=== PATIENT | male | born 1960 | race African-American/Black ===

== ENCOUNTER → 2016-06-17 | Outpatient (CLI) | payer OTHER, BC ==
[~2016-06-17] MED LIST: MULT-506 PO; RXC5 PO
--- NOTE | 2016-06-17 15:47 | DIAGNOSTIC IMAGING REPORT ---
MRI OF THE CERVICAL SPINE WITHOUT IV CONTRAST CLINICAL HISTORY: Neck pain. Left upper extremity radiculopathy. COMPARISON STUDY: No priors. TECHNIQUE: MRI of the cervical spine is performed utilizing various T1 and T2-weighted sequences in the axial and sagittal planes. IV contrast was not administered for this examination. FINDINGS: Cervical spine: Vertebral body height and alignment are maintained throughout the cervical spine. There is mild straightening of the cervical lordosis. The atlantodental articulation appears preserved. The spinous processes are intact. Small anterior osteophytes are seen at C5 to C7. Mild degenerative endplate edema is noted at C5-C6. No destructive osseous process is identified. Intervertebral discs: There is degenerative disc desiccation seen throughout the cervical spine. Mild loss of height is noted at C5-C6 and C6-C7. Spinal cord: Minimal focal myelomalacia is suggested within the cervical cord at the level of C6, likely related to spinal stenosis. There is minimal thinning of the cord at this level. This is best seen on axial image #113 and sagittal STIR image #10. The cervical spinal cord is otherwise normal in morphology and signal intensity. C2-C3: Unremarkable. C3-C4: Uncovertebral and facet arthropathy cause mild left neural foraminal stenosis. The central canal appears clear. C4-C5: A posterior disc osteophyte complex eccentric to the right effaces the ventral subarachnoid space. Facet arthropathy causes only minimal right-sided neural foraminal stenosis. C5-C6: A posterior disc osteophyte complex eccentric to the right effaces the ventral cord. In conjunction with facet arthropathy, this causes severe right and [id number] left neural foraminal stenosis. C6-C7: A posterior disc osteophyte complex eccentric to the right effaces the ventral cord. In conjunction with uncovertebral and facet arthropathy, this causes moderate right and mild left neural foraminal stenosis. C7-T1: Unremarkable. Soft tissues: The prevertebral and paraspinous soft tissues are within normal limits. Brain parenchyma: Partially visualized brain parenchyma at the skull base is normal in appearance. IMPRESSION: 1. Cervical spondylosis as above, greatest at C5-C6 and C6-C7 where there is effacement of the ventral cord secondary to posterior disc osteophyte complexes. 2. See discussion for detailed [id number] analysis. 3. Suspect mild myelomalacia at the level of C6, likely secondary to spinal stenosis. Dictated: 06/17/2016 3:19 PM Transcribed: 06/17/2016 3:46 PM [email or web address]_Nisa Electronically signed by: Danielito Parada M.D. 06/17/2016 3:49 PM Dictated Date/Time: 06/17/2016 3:19 PM
== END | disposition home or self-care (01) ==
LOC: C.MRIBC 14:31
PROVIDERS: ATTEND Pain Medicine Interventional Pain Medicine
DX: M47.22 Other spondylosis with radiculopathy, cervical region (principal)

== ENCOUNTER → 2016-06-28 | Outpatient (CLI) | payer OTHER, BC ==
--- NOTE | 2016-06-28 10:52 | DIAGNOSTIC IMAGING REPORT ---
CERVICAL SPINE 5 VIEWS HISTORY: Neck pain. COMPARISON: Cervical spine MRI 06/17/2016. FINDINGS: The cervical spine is visualized from C1 through the superior endplate of T1. There is no fracture. No subluxation. Straightening of the cervical spine. Moderate disc space narrowing at C5-C6 and C6-C7 with associated endplate osteophytes. Prevertebral soft tissues and the atlantodens interval are intact. Moderate bilateral neural foraminal narrowing at C5-C6 and C6-C7 due to the uncovertebral hypertrophy. IMPRESSION: No fracture or subluxation within the cervical spine. No change in the C5-C6 and C6-C7 moderate degenerative disc disease. Electronically signed by: Zion Altamirano M.D. 06/28/2016 10:51 AM Dictated Date/Time: 06/28/2016 10:41 AM
== END | disposition home or self-care (01) ==
LOC: C.RAD 10:02
PROVIDERS: ATTEND Pain Medicine Interventional Pain Medicine
DX: M54.2 Cervicalgia (principal); M50.322 Other cervical disc degeneration at C5-C6 level; M50.323 Other cervical disc degeneration at C6-C7 level

== ENCOUNTER 2016-08-11 05:15 | Inpatient (IN) | payer OTHER, BC ==
[2016-07-27 13:42] VITALS: BMI 32.0
--- NOTE | 2016-07-27 14:12 | PAT Medication Instructions ---
Service Date Jul 27, 2016. Current Home Medication List Multivitamin (Multivitamin), 1 TAB PO QAM Medication Instructions For Your Scheduled Surgery - Hold the following medications the morning of surgery: Multivitamin (Multivitamin), 1 TAB PO QAM If you have any questions please call us at [phone] or [phone] or [phone]
--- NOTE | 2016-07-27 14:45 | DIAGNOSTIC IMAGING REPORT ---
CHEST PREADMISSION(PA/LAT) CLINICAL HISTORY: PAT preoperative evaluation COMPARISON STUDY: No previous studies for comparison. FINDINGS: The bones soft tissues and hemidiaphragms are normal. The cardiomediastinal silhouette is normal. The lungs are clear. The pulmonary vasculature is normal. IMPRESSION: Negative chest. Electronically signed by: Eric Sutton M.D. 07/27/2016 2:44 PM Dictated Date/Time: 07/27/2016 2:44 PM
[2016-07-27 14:53] LABS: BASO % 0.2 %; BASO ABS # 0.01 K/uL (0-0.2); HEMATOCRIT 44.3 % (42-52); IG% 0.4 %; LYMPH % 17.4 %; LYMPH ABS # 0.98 K/uL (1.2-3.4); MEAN CELL VOLUME 71.2 fL (80-100); MEAN CORPUSCULAR HEMOGLOBIN 23.8 pg (25-34); MEAN CORPUSCULAR HGB CONC 33.4 g/dl (32-36); MONO % 9.1 %; NEUT % 70.9 %; PLATELET COUNT 208 K/uL (130-400); RED BLOOD COUNT 6.22 M/uL (4.7-6.1); WHITE BLOOD COUNT 5.63 K/uL (4.8-10.8)
[2016-07-27 15:08] LABS: URINE APPEARANCE CLEAR (CLEAR); URINE BILIRUBIN NEG (NEG); URINE COLOR YELLOW; URINE NITRITE NEG (NEG); URINE PH 5.5 (4.5-7.5); URINE SPECIFIC GRAVITY 1.018 (1.000-1.030); UROBILINOGEN NEG (NEG)
[2016-07-27 15:12] LABS: MANUAL MICROSCOPIC REQUIRED? NO; REVIEW REQ? NO
[2016-07-27 15:39] LABS: BUN/CREATININE RATIO 15.8 (10-20); CALCIUM 8.8 mg/dl (8.5-10.1); CREATININE 1.1 mg/dl (0.60-1.40); POTASSIUM 4.2 mmol/L (3.5-5.1)
[2016-07-27 15:41] LABS: COMPLETE YES; MICROCYTOSIS PRESENT
--- NOTE | 2016-08-09 12:50 | HISTORY & PHYSICAL EXAMINATION ---
DATE OF ADMISSION: 08/11/2016 CHIEF COMPLAINT: Neck and left arm pain. HISTORY OF PRESENT ILLNESS: The patient is a 55-year-old male who reports longstanding history symptoms as above. He reports associated numbness in the left arm and of course the pain. Pain on a daily basis 5/10, increased with activity. He had a work related injury last fall 2015 when he attempted to pull open a heavy door and felt onset of neck and shoulder pain. He was identified as having a rotator cuff tear, was treated surgically for this this and following completion of rehabilitation for this shoulder, had ongoing symptoms consistent with a radiculopathy. Workup revealed disc herniation C5-C6, C6-C7 with cord compression and slight myelomalacia and foraminal narrowing. Despite conservative treatment, he had ongoing pain and has been unable to return to work. Did trial an epidural injection and therapy with no resolution. He denies right arm symptoms. He reports subjective numbness in the radial 2 digits of the left upper extremity. He was previously working as a senior escrow officer. PAST MEDICAL HISTORY: Denied. PAST SURGICAL HISTORY: Left shoulder, rotator cuff repair, right knee surgery, right shoulder surgery, right finger surgery. ALLERGIES: None. CURRENT MEDICATIONS: None. SOCIAL HISTORY: The patient is , has children. Occasionally uses alcohol. No tobacco use or drug use. FAMILY HISTORY: Notable for hypertension. REVIEW OF SYSTEMS: Notable for subjective weakness left upper extremity. Denies cardiac symptoms such as irregular heartbeat, syncope or chest pain. He denies dyspnea on exertion, cough, abdominal pain, incontinence, anxiety, depression, fevers, chills, night sweats or other constitutional complaints. PHYSICAL EXAMINATION: The patient stands 6'1" tall, weighs 245 pounds. He has normal affect and answers questions appropriately. Appears stated age. He has full cervical range of motion but a positive Spurling's to the left. He has a negative Lhermitte's. He has no lymphadenopathy or thyromegaly in the neck. CARDIAC EXAMINATION: Reveals regular rate and rhythm. LUNGS: Clear to auscultation bilaterally. He has equal symmetric chest excursion. EXTREMITY EXAMINATION: Reveals full active range of motion of both upper extremities with palpable radial pulses and normal appearing skin. NEUROLOGIC EXAMINATION: Reveals sensory disturbance to light touch radial digits of the left hand. He has 5/5 strength mini motor testing of both upper extremities in all motor groups. Sensory testing of the right upper extremity is normal. Left demonstrated the sensory disturbance. Reflexes are symmetrically diminished in the upper extremities at biceps, triceps, brachioradialis. He has a negative Goodman's bilaterally. He has no ataxia with gait. MRI was reviewed as above. ASSESSMENT AND PLAN: The patient has a known C5-C6, C6-C7 disc herniation with radiculopathy, failed to respond to conservative treatment. PLAN: Given the chronicity and ongoing sensory disturbances I recommend surgery. Plan is for ACDF C5-C6 and C6-C7. His questions are answered. Risk were reviewed. [facility]
[~2016-08-11] VITALS: Ht 185.4 cm; Wt 113.3 kg
[2016-08-11] VITALS (14 sets, daily range): BP systolic 120–145; BP diastolic 76–90; PULSE 60–86; TEMP 36.4–37; O2SAT 96–100; Ht 185.4 cm; Wt 113.3 kg
[~2016-08-11 05:15] MED LIST changes: -RXC5 PO
[2016-08-11] MEDS ORDERED: LACTATED RINGER'S 1000ML 1,000 ML IV SCH (06:00)
[2016-08-11] MEDS ORDERED: CeleBREX 200 MG CAP PO SCH (06:00)
[2016-08-11] MEDS ORDERED: CEFAZOLIN 2000 MG/60 ML D5W IV SCH (06:00)
[2016-08-11] MEDS ORDERED: PREGABALIN 75 MG CAP PO SCH (06:00)
[2016-08-11] MEDS ORDERED: FENTANYL CITRATE INJ 50 MCG/1 ML 2 ML VIAL ONE ×3 (06:37→08:40)
[2016-08-11] MEDS ORDERED: MIDAZOLAM HCL 1 MG/ML 2ML VIAL ONE (06:37)
[2016-08-11] MEDS ORDERED: PROPOFOL IV EMULSION 10 MG/ML 100 ML VIAL IV ONE (06:47)
[2016-08-11] MEDS ORDERED: REMIFENTANIL 1 MG VIAL ONE ×3 (06:51→09:29)
[2016-08-11] MEDS ORDERED: THROMBIN 5000 UNITS KIT ONE (07:02)
[2016-08-11] MEDS ORDERED: BACITRACIN 50000 UNIT VIAL ONE (07:02)
--- NOTE | 2016-08-11 07:35 | History & Physical Bridge Note ---
H&P Re-Evaluation Bridge Note: I have examined the patient, reviewed the History & Physical and in the interval since the performance of the History & Physical I have noted the following changes of clinical significance: No changes noted
[2016-08-11] MEDS ORDERED: PROMETHAZINE HCL INJ 12.5 MG in SODIUM CHLORIDE 0.9% 50ML 50 ML IV PRN (08:00)
[2016-08-11] MEDS ORDERED: FENTANYL CITRATE INJ 50 MCG/1 ML 2 ML VIAL IV PRN (08:00)
[2016-08-11] MEDS ORDERED: EpHEDrine SULFATE INJ 50 MG/ML AMP IV PRN (08:00)
[2016-08-11] MEDS ORDERED: ONDANSETRON INJ 2 MG/ML 2 ML VIAL IV PRN ×2 (08:00→10:15)
[2016-08-11] MEDS ORDERED: HYDROmorphone INJ 1 MG/ML SYR IV PRN (08:00)
[2016-08-11] MEDS ORDERED: ATROPINE SULFATE 0.1 MG/ML 5ML SYR IV PRN (08:00)
[2016-08-11] MEDS ORDERED: HYDROmorphone INJ 2 MG/ML SYR/VIAL ONE ×2 (08:15→09:43)
[2016-08-11] MEDS ORDERED: EpHEDrine SULFATE 50MG/5ML SYR ONE (09:38)
[2016-08-11] MEDS ORDERED: DEXAMETHASONE SOD INJ 4 MG/ML VIAL ONE (09:38)
[2016-08-11] MEDS ORDERED: LIDOCAINE HCL 2% 2 ML VIAL (20MG/ML) ONE (09:38)
[2016-08-11] MEDS ORDERED: ONDANSETRON INJ 2 MG/ML 2 ML VIAL ONE (09:38)
[2016-08-11] MEDS ORDERED: PROPOFOL IV EMULSION 10 MG/ML 20 ML VIAL IV ONE (09:38)
[2016-08-11] MEDS ORDERED: SUCCINYLCHOLINE CHLORIDE 20 MG/ML 10 ML VIAL IV ONE (09:38)
[2016-08-11] MEDS ORDERED: FLOSEAL HEMOSTATIC MATRIX 5ML TOP ONE (09:54)
--- NOTE | 2016-08-11 10:08 | [facility] Post Operative Brief Note ---
Immediate Operative Summary Operative Date Aug 11, 2016. Pre-Operative Diagnosis C5-C6, C6-C7 disc herniation with radiculopathy Post-Operative Diagnosis SAME Procedure(s) Performed C5-C7 Anterior Cervical Discectomy and Fusion; C6 Corpectomy; C6 placement of interbody device with application of allograft Surgeon Dr. Castrejon Telephonic Rn Surgeon(s) Huey Ott PA-C Estimated Blood Loss 25 ML Findings \dcit Specimens none per surgeon
[2016-08-11] MEDS ORDERED: RACEPINEPHRINE 2.25% NEBU SOLN 0.5 ML VIAL INH PRN (10:15)
[2016-08-11] MEDS ORDERED: LORAZEPAM 0.5 MG TAB PO PRN (10:15)
[2016-08-11] MEDS ORDERED: DEXAMETHASONE INJ 8 MG in SYRINGE 0 ML IV PRN (10:15)
[2016-08-11] MEDS ORDERED: NALOXONE HCL 0.4 MG/1 ML VIAL/CARP IV PRN (10:15)
[2016-08-11] MEDS ORDERED: DiphenhydrAMINE HCL 50 MG/ML VIAL IV PRN (10:15)
[2016-08-11] MEDS ORDERED: LORAZEPAM INJ 0.5 MG in SYRINGE 0.75 ML IV PRN (10:15)
[2016-08-11] MEDS ORDERED: OXYCODONE HCL IR 5 MG TAB (IMMEDIATE RELEASE) PO PRN (10:15)
[2016-08-11] MEDS ORDERED: HYDROmorphone INJ 0.5 MG/0.5 ML SYR IV PRN (10:15)
[2016-08-11] MEDS ORDERED: LABETALOL HCL IV 5 MG/ML 20ML IV ONE (10:33)
[2016-08-11] MEDS ORDERED: NURSING VERBAL MED ORDER ONE (10:45)
--- NOTE | 2016-08-11 11:32 | Anesthesiology Progress Note ---
Anesthesia Post Op Note Date & Time Aug 11, 2016 at 11:32 Vital Signs Pain Intensity: 0 Vital Signs Past 12 Hours Date Time Temp Pulse Resp B/P (MAP) Pulse Ox O2 Delivery O2 Flow Rate FiO2 08/11/16 11:25 85 18 133/85 99 Room Air 08/11/16 11:15 36.1 81 18 142/87 99 Room Air 08/11/16 11:05 83 18 140/99 100 Oxymask 3 08/11/16 10:55 82 18 149/92 100 Oxymask 3 08/11/16 10:45 85 14 165/98 100 Oxymask 3 08/11/16 10:35 85 16 161/106 100 Oxymask 10 08/11/16 10:25 95 16 166/107 100 Oxymask 10 08/11/16 10:16 36.1 95 26 161/87 93 Oxymask 10 08/11/16 05:40 37 69 18 145/90 98 Room Air Notes Mental Status: alert / awake / arousable, participated in evaluation Pt Amnestic to Procedure: Yes Nausea / Vomiting: adequately controlled Pain: adequately controlled Airway Patency, RR, SpO2: stable & adequate BP & HR: stable & adequate Hydration State: stable & adequate Anesthetic Complications: no major complications apparent
[2016-08-11] MEDS ORDERED: ACETAMINOPHEN IV 100 ML IV PRN (12:45)
--- NOTE | 2016-08-11 12:53 | DIAGNOSTIC IMAGING REPORT ---
Cervical SPINE, INTRAOPERATIVE FLUOROSCOPY HISTORY: C5 C7 ACDF. FLUOROSCOPY TIME: 15 seconds. FINDINGS: Intraoperative fluoroscopy was provided for the cervical spine. 3 fluoroscopic spot images were obtained. Anterior cervical discectomy and fusion from C5 through C7. The hardware appears intact. IMPRESSION: Fluoroscopy provided for a C5-C7 ACDF. Electronically signed by: Zion Altamirano M.D. 08/11/2016 12:52 PM Dictated Date/Time: 08/11/2016 12:49 PM
[2016-08-11] MEDS ORDERED: SCOPOLAMINE 1.5 MG TDSY TD SCH (13:00)
[2016-08-11] MEDS: SODIUM CHLORIDE 0.9% 1000ML 1,000 ML IV SCH ×2 (13:06→21:40)
[2016-08-11] MEDS: DEXAMETHASONE INJ 6 MG in SYRINGE 0 ML IV SCH (16:13)
[2016-08-11] MEDS: CEFAZOLIN IV 1,000 MG in DEXTROSE 5% 50ML 50 ML IV SCH (16:13)
[2016-08-11] MEDS: CHECK SCOPOLAMINE PATCH PLACEMENT SCH (16:14)
[2016-08-12] VITALS (12 sets, daily range): BP systolic 126–149; BP diastolic 78–87; PULSE 65–91; TEMP 36.5–36.9; O2SAT 94–99
[2016-08-12] MEDS: CHECK SCOPOLAMINE PATCH PLACEMENT SCH ×2 (00:13→08:16)
[2016-08-12] MEDS: CEFAZOLIN IV 1,000 MG in DEXTROSE 5% 50ML 50 ML IV SCH ×2 (00:13→08:21)
[2016-08-12] MEDS: DEXAMETHASONE INJ 6 MG in SYRINGE 0 ML IV SCH ×2 (00:13→08:16)
[2016-08-12] MEDS ORDERED: NURSING VERBAL MED ORDER ONE (06:30)
--- NOTE | 2016-08-12 08:38 | Anesthesiology Progress Note ---
Anesthesia Post Op Note Date & Time Aug 12, 2016 at 08:37 Vital Signs Pain Intensity: 0.0 Vital Signs Past 12 Hours Date Time Temp Pulse Resp B/P (MAP) Pulse Ox O2 Delivery O2 Flow Rate FiO2 08/12/16 07:09 70 14 94 Room Air 08/12/16 06:50 Room Air 08/12/16 06:29 36.5 70 18 129/78 97 Room Air 08/12/16 04:35 36.5 74 16 130/83 98 Nasal Cannula 2.0 08/12/16 03:21 69 12 99 Nasal Cannula 2.0 08/12/16 02:37 36.6 70 16 126/83 99 Nasal Cannula 2.0 08/12/16 00:20 36.5 76 16 139/79 98 Nasal Cannula 2.0 08/12/16 00:20 98 Nasal Cannula 2.0 Humidified Oxygen 08/11/16 23:27 81 12 98 Nasal Cannula 2.0 08/11/16 22:18 36.8 74 20 132/82 99 Nasal Cannula 2.0 Humidified Oxygen 08/11/16 20:43 36.6 60 18 128/83 96 Nasal Cannula 2.0 Humidified Oxygen Notes Mental Status: alert / awake / arousable, participated in evaluation Pt Amnestic to Procedure: Yes Nausea / Vomiting: adequately controlled Pain: adequately controlled Airway Patency, RR, SpO2: stable & adequate BP & HR: stable & adequate Hydration State: stable & adequate Anesthetic Complications: no major complications apparent
[2016-08-12] MEDS ORDERED: RXC5 PO (14:21)
--- NOTE | 2016-08-12 14:22 | Discharge Instructions ---
Discharge Instructions Date of Service Aug 12, 2016. Admission Reason for Admission: Spinal Stenosis Discharge Discharge Diagnosis / Problem: same Discharge Goals Goal(s): Decrease discomfort Activity Recommendations Activity Limitations: per Instructions/Follow-up section Lifting Limitations: no more than 10 pounds Exercise/Sports Limitations: until after follow-up appointment May Resume Sexual Activity: when tolerated Shower/Bathe: may shower/bathe in 3 days . Instructions / Follow-Up Instructions / Follow-Up ACTIVITY RECOMMENDATIONS: SELF CARE INSTRUCTIONS AFTER CERVICAL FUSIONS 1. No smoking. Smoking drastically decreases the chance of a solid fusion. 2. No bending, lifting more than 5 pounds, or twisting (roll like a log when turning in bed). 3. You may shower 3 days after surgery. Thoroughly dry wound. Do not soak in the tub. 4. Cervical collar: Must be worn at all times including sleeping. You may remove the brace only to bath, eat and if you are sitting in a recliner. 5. Please walk as much as you can for exercise. Gradually increase the distance that you walk as your endurance increases. SPECIAL CARE INSTRUCTIONS: VERY IMPORTANT TO READ AND REVIEW A. Do not take any anti-inflammatory medications (i.e. Indocin, Advil, Aspirin, Naprosyn, Aleve, Motrin, etc.) as these may inhibit the chance of a solid fusion. Tylenol is okay to take. B. Your surgical incision has been closed with a cosmetic suture under the skin that will dissolve in about 6 weeks. In 14 days, you can use a pair of clean scissors and cut the suture that is left outside of the skin at the ends of your incision. C. Complications are uncommon, but please contact us if you have any signs or symptoms of: 1. wound infection (fever higher than 102.5 degrees F, redness, separation of wound, drainage, or increasing pain from the incision) 2. blood clots in legs (pain, swelling, redness and warmth in legs) 3. urinary tract infection (fever higher than 102.5 degrees, burning upon urination or increased frequency of urination) 4. nerve problems (inability to walk on your toes or heels, numbness, loss of bowel or bladder control) 5. any other symptoms that concern you. D. Please call the office at if you have any concerns or questions about your operation or recovery. MANAGING PAIN AFTER SPINAL SURGERY 1. Narcotic medication is intended for short-term use and will be provided for surgical pain. Surgical pain usually lasts for a period of 4-6 weeks. Narcotic medication includes Percocet, Vicodin, Darvocet, Tylenol #3 or Lortab. 2. Longer-term pain is more appropriately treated with non-narcotic medication such as Tylenol ES. 3. Muscle spasm is not appropriately treated with narcotics. Muscle relaxers such as Soma, Flexeril or Skelaxin can be used along with Tylenol ES. 4. Remember that we all live with some "aches and pains". This is not unusual or uncommon after an injury or as we get older. 5. We will provide appropriate medication within the normal guidelines of their prescribed use. We will also be very cautious and aware of potential abuse and extended duration of patients' medication needs. 6. Please allow 2-3 days to process refills. Prescriptions will not be mailed but must be picked up at the office. FOLLOW UP VISIT: Keep your scheduled follow-up appointment. Any questions, please call the office at . Current Hospital Diet Patient's current hospital diet: Clear Liquid Diet Discharge Diet Recommended Diet: Regular Diet Procedures Procedures Performed: C5-C7 Anterior Cervical Discectomy and Fusion; C6 Corpectomy; C6 placement of interbody device with application of allograft Pending Studies Studies pending at discharge: no Medical Emergencies . Who to Call and When: Medical Emergencies: If at any time you feel your situation is an emergency, please call 911 immediately. . Non-Emergent Contact Non-Emergency issues call your: Surgeon . "Provider Documentation" section prepared by Eduar Castrejon. . VTE Core Measure Inpt VTE Proph given/why not?: [facility] [place] Drug Monitoring Program Search Results: patient reviewed within database, no issues identified
--- NOTE | 2016-08-12 14:24 | Discharge Summary ---
Orthopedic Discharge Summary Admission Date/Reason Aug 11, 2016 at 10:10 Spinal Stenosis. Discharge Date/Disposition Aug 12, 2016 Home Diagnosis Principal Diagnosis: same Procedure(s) Performed C6 corpectomy Medication Reconciliation New Medications: Oxycodone HCl (Oxycodone HCl) 5 Mg Tab 5-10 MG PO Q4H PRN for moderate-severe pain, #60 TAB Continued Medications: Multivitamin (Multivitamin) Tab 1 TAB PO QAM, TAB Admission Physical Exam As per Admitting History & Physical. Hospital Course The patient was admitted for elective cervical surgery. They tolerated procedure without complications, were stable on the floor, ambulated, had pain controlled and were discharged in stable condition. Discharge Instructions Please refer to the electronic Patient Visit Report (Discharge Instructions) for additional information.
--- NOTE | 2016-08-12 14:25 | Orthopedic Progress Note ---
Orthopedic Progress Note Date of Service Aug 12, 2016. Subjective Post OP Day: 1 Reports: feeling well, pain controlled w PO medications Objective calves soft nontender, N/V intact, dressing C/D/I, A&O x3, hemovac drainage Date Time Temp Pulse Resp B/P (MAP) Pulse Ox O2 Delivery O2 Flow Rate FiO2 08/12/16 12:28 36.9 67 16 131/82 95 Room Air 08/12/16 11:36 36.7 68 14 98 Room Air 08/12/16 11:08 68 14 98 Room Air 08/12/16 10:30 36.7 65 16 144/87 97 Room Air 08/12/16 08:30 36.9 77 16 127/84 95 Room Air 08/12/16 07:09 70 14 94 Room Air 08/12/16 06:50 Room Air 08/12/16 06:29 36.5 70 18 129/78 97 Room Air 08/12/16 04:35 36.5 74 16 130/83 98 Nasal Cannula 2.0 08/12/16 03:21 69 12 99 Nasal Cannula 2.0 08/12/16 02:37 36.6 70 16 126/83 99 Nasal Cannula 2.0 08/12/16 00:20 36.5 76 16 139/79 98 Nasal Cannula 2.0 08/12/16 00:20 98 Nasal Cannula 2.0 Humidified Oxygen 08/11/16 23:27 81 12 98 Nasal Cannula 2.0 08/11/16 22:18 36.8 74 20 132/82 99 Nasal Cannula 2.0 Humidified Oxygen 08/11/16 20:43 36.6 60 18 128/83 96 Nasal Cannula 2.0 Humidified Oxygen 08/11/16 19:55 80 14 97 Nasal Cannula 2.0 08/11/16 18:36 36.4 80 20 135/78 97 Nasal Cannula 2.0 Humidified Air 08/11/16 16:38 36.4 73 12 120/76 97 Nasal Cannula 2.0 Humidified Oxygen 08/11/16 16:00 Nasal Cannula 2.0 Humidified Oxygen 08/11/16 15:46 86 14 98 Nasal Cannula 2.0 08/11/16 14:30 36.7 78 138/86 97 Nasal Cannula 2.0 Humidified Oxygen Assessment & Plan Assessment: stable, amberly diet, no swelling, ok to d/c home
--- NOTE | 2016-08-12 22:49 | OPERATIVE REPORT ---
DATE OF OPERATION: 08/11/2016 PREOPERATIVE DIAGNOSES: Cervical disc herniations and cervical stenosis C5-C6 and C6-C7. POSTOPERATIVE DIAGNOSES: Same. PROCEDURES: 1. C6 corpectomy. 2. Anterior cervical fusion C5-C7 with anterior cervical corpectomy, spacer, local bone and bone putty. 3. Anterior cervical instrumentation with [employer] anterior cervical titanium plate C5-C7. SURGEON: Dr. Castrejon. SOLID WASTE MANAGER: Jeff Ott PA-C. Please note he participated in all portions of the procedure and was critical for performance of the procedure, participated in positioning, prepping, draping, retraction, and wound closure. ANESTHESIA: General endotracheal anesthesia. COMPLICATIONS: None. ESTIMATED BLOOD LOSS: Minimal. PROCEDURE IN DETAIL: After identification of the patient and operative level, he was brought to the OR where he underwent induction of general anesthesia. He was then positioned supine on OR table. All bony prominences well padded. Care was taken to pad all bony prominences. Shoulders were taped distally. The anterior neck was sterilely prepped and draped in usual fashion. Spinal cord monitoring signals were obtained and timeout was performed. I made a transverse skin incision on the right side of the neck at the level of the cricoid cartilage. I divided the platysma in line with the incision and performed routine anterior cervical exposure, medial to sternocleidomastoid and carotid sheath. I used blunt dissection to develop a plane, identified the presumptive disc spaces. Large anterior osteophytes were noted and level was confirmed with fluoroscopy. I then marked the operative levels and mobilized longus colli with placement of a self-retaining cervical retractor. I then placed Weidman pins in the body of C5 and C7, applied slight distraction across the pins. I attempted to proceed with discectomies, but the disc spaces were markedly collapsed, making it difficult to visualize the posterior disk space. I had to jim out the anterior osteophytes and the calcified disc material. I then opted to perform corpectomy of C6 to facilitate exposure of the posterior disc space and subsequent posterior decompression. I left the posterior wall of the body of C6 intact but removed the anterior three-quarters to facilitate decompression of disc spaces of C5-C6 and C6-C7. I then completed discectomies at C5-C6 and C6-C7, took down the posterior osteophytes and calcified PLL using a jim, and then finishing the decompression with Kerrisons with removal of the annulus and the PLL. I performed foraminotomies bilaterally at C5-C6 and C6-C7. I then palpated the nerve roots decompressed at each level. I decorticated the endplates of C5 and C7 with a high-speed jim and determined the graft size for the corpectomy spacer. A PEEK corpectomy spacer from [employer] was packed with local bone and DBM putty and tamped into position, filled the defect, and I then applied a titanium anterior cervical plate from C5-C7 with 2 screws into each vertebral body. All screws were final tightened with blocking mechanisms engaged. I obtained final x-rays confirming level and screw and cage placement. I then irrigated with bacitracin, confirmed hemostasis, and closed over a small round drain. Spinal cord monitoring signals improved following decompression and case was uneventful. I attest to the content of the Intraoperative Record and any orders documented therein. Any exception s are noted below.
== END 2016-08-12 15:35 | disposition home or self-care (01) | DRG 472 ==
LOC: C.ACU 05:15 → C.3E 10:10 → ENRESERV 11:12
PROVIDERS: ADMIT Orthopaedic Surgery Orthopaedic Surgery of the Spine; ATTEND Orthopaedic Surgery Orthopaedic Surgery of the Spine
PROC: 0RT30ZZ Resection of Cervical Vertebral Disc, Open Approach (ICD-10-PCS; principal; 2016-08-11 07:30)
PROC: 0RG20A0 Fusion of 2 or more Cervical Vertebral Joints with Interbody Fusion Device, Anterior Approach, Anterior Column, Open Approach (ICD-10-PCS; principal; 2016-08-11 07:30)
DX: M50.122 Cervical disc disorder at C5-C6 level with radiculopathy (principal); G95.89 Other specified diseases of spinal cord; M48.02 Spinal stenosis, cervical region; E66.9 Obesity, unspecified; G47.33 Obstructive sleep apnea (adult) (pediatric); Z68.33 Body mass index [BMI] 33.0-33.9, adult; Z99.89 Dependence on other enabling machines and devices

== ENCOUNTER → 2017-03-06 | Outpatient (CLI) | payer OTHER, BC ==
[~2017-03-06] MED LIST changes: +RXC5 PO
== END | disposition home or self-care (01) ==
LOC: C.RDSM 12:59
PROVIDERS: ATTEND Physical Medicine & Rehabilitation Sports Medicine
DX: M25.512 Pain in left shoulder (principal)

== ENCOUNTER → 2017-03-10 | Outpatient (CLI) | payer OTHER, BC ==
[~2017-03-10] MED LIST changes: +GADAVIST IV PRN
--- NOTE | 2017-03-10 11:50 | DIAGNOSTIC IMAGING REPORT ---
LEFT SHOULDER MRI with INTRA-ARTICULAR CONTRAST HISTORY: LT SHOULDER PAIN TECHNIQUE: Multiplanar multisequence MRI of the left shoulder was performed following the intra-articular injection of contrast. COMPARISON STUDY: Outside hospital left shoulder MRI 01/06/2016. FINDINGS: AC joint: Distal resection of the left clavicle. The AC joint is well aligned. Rotator cuff: Evidence for prior rotator cuff repair. The teres minor tendon appears intact. There is a small linear full-thickness tear at the distal infraspinatus tendon with an interstitial component extending proximally. No associated retraction. Thickening and increased signal within the majority of the supraspinatus tendon some of which may related to the postoperative change. There is also a focal full-thickness tear involving the anterior fibers of the distal supraspinatus tendon with an interstitial component which extends proximally to the musculotendinous junction. Small linear partial tear along the undersurface of the distal subscapularis tendon. Contrast within the subacromial/subdeltoid bursa due to the full-thickness rotator cuff tears. Labrum: Diffusely abnormal labrum consistent with a circumferential degeneration/tear. Biceps tendon: Abnormal signal within the proximal long head of the biceps tendon. No evidence for full-thickness tear. Bones: No acute fracture or dislocation within the left shoulder. Mild superior subluxation of the humeral head in relation to the glenoid due to the chronic rotator cuff injury. There are metallic anchors within the humeral head from the prior rotator cuff repair. Cartilage: Mild cartilage thinning within the humeral head. Near full-thickness cartilage loss within the superior aspect of the glenoid. IMPRESSION: 1. Prior rotator cuff repair. However, there are focal full-thickness tears seen within the supraspinatus and infraspinatus tendons with associated interstitial components of the tear extending proximally to the musculotendinous junctions. 2. Diffusely abnormal labrum consistent with a circumferential degeneration/tear. 3. 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 4. Mild tendinopathy involving the proximal long head of the biceps tendon. Electronically signed by: Zion Altamirano M.D. 03/10/2017 11:48 AM Dictated Date/Time: 03/10/2017 11:32 AM
--- NOTE | 2017-03-10 12:18 | DIAGNOSTIC IMAGING REPORT ---
FLUOROSCOPIC GUIDED LEFT SHOULDER ARTHROGRAM FLUOROSCOPY TIME: 11 seconds. A single fluoroscopic spot image. HISTORY: Left shoulder pain.. PROCEDURE: After obtaining written informed consent, the patient was placed supine on the fluoroscopy table. A suitable site for needle insertion was marked using fluoroscopic guidance. The left shoulder was prepped and draped in the usual sterile fashion. 1% lidocaine was used for skin, subcutaneous and deep soft tissue anesthesia. Under intermittent fluoroscopic guidance, a 22 gauge 2.5 inch spinal needle was inserted into the left glenohumeral joint. A total of 14 cc of one-to-one mixture of dilute Gadavist and Optiray 300 were injected. The needle was then removed. There were no apparent complications. The patient was transported to MR for further imaging. IMPRESSION: Fluoroscopic-guided left shoulder arthrogram without immediate complication. Total injected volume was 14 cc. MR portion of the examination will be dictated separately. Electronically signed by: Zion Altamirano M.D. 03/10/2017 12:17 PM Dictated Date/Time: 03/10/2017 12:16 PM
== END | disposition home or self-care (01) ==
LOC: C.MRIBC 09:41
PROVIDERS: ATTEND Physical Medicine & Rehabilitation Sports Medicine
DX: M25.512 Pain in left shoulder (principal); T22.352D Burn of third degree of left shoulder, subsequent encounter; X58.XXXD Exposure to other specified factors, subsequent encounter; S46.012A Strain of muscle(s) and tendon(s) of the rotator cuff of left shoulder, initial encounter; X58.XXXA Exposure to other specified factors, initial encounter; M19.012 Primary osteoarthritis, left shoulder

== ENCOUNTER → 2017-05-03 | Outpatient (CLI) | payer OTHER, BC ==
[~2017-05-03] MED LIST changes: -GADAVIST IV PRN; +GLUC1TAB8 PO; -RXC5 PO
[2017-05-03 12:37] LABS: BASO % 0.4 %; BASO ABS # 0.02 K/uL (0-0.2); EOS % 2.1 %; HEMATOCRIT 45.2 % (42-52); HEMOGLOBIN 14.8 g/dL (14.0-18.0); IG# 0.01 K/uL (0.00-0.02); LYMPH % 21.9 %; LYMPH ABS # 1.04 K/uL (1.2-3.4); MEAN CELL VOLUME 73.5 fL (80-100); MEAN CORPUSCULAR HEMOGLOBIN 24.1 pg (25-34); MEAN CORPUSCULAR HGB CONC 32.7 g/dl (32-36); MEAN PLATELET VOLUME 11.8 fL (7.4-10.4); MONO % 10.5 %; NEUT % 64.9 %; NEUT ABS # 3.07 K/uL (1.4-6.5); PLATELET COUNT 187 K/uL (130-400); RED CELL DISTRIBUTION WIDTH CV 14.6 % (11.5-14.5); RED CELL DISTRIBUTION WIDTH SD 38.7 fL (36.4-46.3); WHITE BLOOD COUNT 4.74 K/uL (4.8-10.8)
[2017-05-03 12:57] LABS: BLOOD UREA NITROGEN 11 mg/dl (7-18); CALCIUM 9.4 mg/dl (8.5-10.1); CARBON DIOXIDE 30 mmol/L (21-32); CREATININE 1.09 mg/dl (0.60-1.40); GLUCOSE 93 mg/dl (70-99); POTASSIUM 4.4 mmol/L (3.5-5.1); SODIUM 143 mmol/L (136-145)
== END | disposition home or self-care (01) ==
LOC: C.CPL 09:53
PROVIDERS: ATTEND Physician Assistant
DX: Z01.818 Encounter for other preprocedural examination (principal)

== ENCOUNTER → 2017-05-23 | Day surgery (SDC) | payer OTHER, BC ==
[2017-05-02 08:36] VITALS: Ht 185.4 cm; Wt 111.4 kg
[~2017-05-23] VITALS: Ht 185.4 cm; Wt 111.4 kg
[~2017-05-23] MED LIST changes: +ATROPINE SULFATE 0.1 MG/ML 5ML SYR IV PRN; +BUPIVACAINE/EPINEPHRINE 0.5% MPF 1:200,000 30 ML VIAL ONE; +CEFAZOLIN 2000MG IV PUSH 15 ML IV SCH; +CEFTRIAXONE SOD 1 GM VIAL IV SCH; +DEXAMETHASONE SOD INJ 4 MG/ML VIAL ONE; +EpHEDrine SULFATE INJ 50 MG/ML AMP ONE; +EpINEphrine HCL INJ 1 MG/ML 1ML SYRINGE ONE; +FENTANYL CITRATE INJ 50 MCG/1 ML 2 ML VIAL IV PRN; +FENTANYL CITRATE INJ 50 MCG/1 ML 2 ML VIAL ONE; +GLYCOPYRROLATE INJ 0.2 MG/ML VIAL ONE; +KETOROLAC TROMETHAMINE 30 MG/ML VIAL IV. PRN; +LABETALOL HCL IV 5 MG/ML 20ML IV PRN; +LACTATED RINGER'S 1000ML 1,000 ML IV SCH; +LIDOCAINE HCL 2% 2 ML VIAL (20MG/ML) ONE; +MIDAZOLAM HCL 1 MG/ML 2ML VIAL ONE; +NEOSTIGMINE METHYLSULFATE 5 MG/5 ML SYR ONE; +ONDANSETRON INJ 2 MG/ML 2 ML VIAL IV PRN; +ONDANSETRON INJ 2 MG/ML 2 ML VIAL ONE; +OXYCODONE/ACETAMINOPHEN 5-325 TAB PO PRN; +PROPOFOL IV EMULSION 10 MG/ML 20 ML VIAL IV ONE; +ROCURONIUM BROMIDE 10 MG/ML 5 ML VIAL IV ONE; +ROPIVACAINE 0.5% 5 MG/ML 30 ML VIAL ONE; +SODIUM CHLORIDE 0.9% 1000ML 1,000 ML IV SCH
--- NOTE | 2017-05-23 07:34 | History & Physical Bridge Note ---
H&P Re-Evaluation Bridge Note: I have examined the patient, reviewed the History & Physical and in the interval since the performance of the History & Physical I have noted the following changes of clinical significance: consent obtained.No changes noted
--- NOTE | 2017-05-23 07:36 | Discharge Instructions ---
Discharge Instructions Date of Service May 23, 2017. Visit Reason for Visit: Left Shoulder Rotator Cuff Tear With Biceps Tendonopathy Discharge Discharge Diagnosis / Problem: same Discharge Goals Goal(s): Decrease discomfort, Improve function Medications Stopped Medications Name(s): na Restart Stopped Medication(s): use scripts as directed. Activity Recommendations Activity Limitations: as noted below Lifting Limitations: until after follow-up appointment Exercise/Sports Limitations: until after follow-up appointment May Resume Sexual Activity: when tolerated Shower/Bathe: keep incision dry Driving or Machine Use: Anesthesia . Post Anesthesia Instructions: If you have had General Anesthesia or IV Sedation: * Do not drive today. * Resume driving when surgeon permits. * Do not make important decisions or sign legal documents today. * Call surgeon for: 1. Temperature elevations greater than 101 degrees F. 2. Uncontrollable pain. 3. Excessive bleeding. 4. Persistent nausea and vomiting. 5. Medication intolerance (nausea, vomiting or rash). * For nausea and vomiting use only clear liquids such as: tea, soda, bouillon until nausea subsides, then gradually increase diet as tolerated. * If you have any concerns or questions, call your surgeon's office. If physician is unavailable and it is an emergency, call 911 or go to the nearest emergency room. . Instructions / Follow-Up Instructions / Follow-Up The following are instructions to follow after "Shoulder Surgery" including, Acromioplasty, Rotator Cuff Repair and Instability Surgery ACTIVITY RECOMMENDATIONS: * Minimize activity after surgery. * No excessive walking, jogging, sports or laboring. * Return to activity is individualized depending on the patient and type of surgery. * Driving is not permitted until at least your first post operative visit. Please ask your doctor when it is safe to resume driving. * Expect increased discomfort with increased activity. Continue to ice the shoulder as needed. SCHOOL/WORK RECOMMENDATIONS: * You may return to sedentary work or school when you are feeling more comfortable. This is usually 3-7 days after surgery. MEDICATIONS: * You will have a prescription for pain medication and an anti-inflammatory medication after surgery. * Use the pain medication for severe pain and the anti-inflammatory for less severe pain. Once the pain medication has run out, try to use the anti-inflammatory medication. If this is not effective, contact the office for assistance. * The pain medication may cause nausea, constipation and drowsiness. You should see how they affect you before driving or similar activity. * The anti-inflammatory medication may cause stomach upset and bleeding. If this occurs let your doctor know immediately . * Take a stool softener like Colace or a laxative like Senokot to prevent constipation. DIET: * Resume previous diet. SPECIAL CARE: ICE: You have the option of an ice cooler, gel packs or ice bags. * If you have an ice cooler, refer to the instructions for that device. The ice cooler may be used continuously. * If you do not have an ice cooler, you will need to use ice bags or gel packs. Do not apply ice directly to the skin. Use a thin dressing or isabel shirt between the skin and ice bag. Apply ice for 20-30 minutes and repeat every 2-4 hours. This is especially important for the first 7-10 days after surgery. Once the pain improves, use ice as needed. ELEVATION: * You may be more comfortable sleeping in an upright position. Use the sling to elevate your arm. DRESSING: * Your dressing will be changed at your first therapy appointment approximately 4-5 days after surgery. Band-aids, tape strips or gauze may be applied. You may then change your dressing daily. * Reapply dressing followed by the EBIce cooling pad (if chosen) and then the sling. * Always wash your hands prior to touching the incision area. * Once the stitches are removed, you may leave the wound open to air or cover with gauze. * Expect some bloody drainage for the first few days after surgery. * Leave the tape strips, if present, in place for 5-7 days. * Band-aids and gauze may be changed daily. * There may be a gauze pad in your armpit area. This can be changed daily or replaced by a dry washcloth. SLING/BRACE: * You will need to use a sling or brace after surgery. The length of time the sling is used is dependent upon the type of surgery performed. * Arthroscopic Acromioplasty requires use of the sling for 2-4 weeks for comfort. * Labral procedures and Rotator Cuff Repairs require use of the sling for a longer period of time. Please check with your doctor prior to discontinuing the sling. BATHING: * You may shower or sponge-bathe immediately after surgery. The post operative shoulder dressing is mostly water-tight. You may shower right over this dressing, but be reasonably careful not to get the gauze or incision wet. * Once the dressing has been changed on the fourth or fifth day after surgery, you may shower and get the incision wet. * Wash with regular soap and water. * Do not bathe (submerge the incision), soak, swim or use a hot tub until the incision is completely healed over with normal skin and the doctor has given the OK to proceed. * There is no need to apply any ointments, powders or salves to your incision. * Do not apply alcohol or hydrogen peroxide directly to the incision. * Diluted peroxide (50:50 mixture with sterile saline) may be used to clean dried blood from around the incision area. THERAPY: * You will begin therapy four or five days after surgery. * Organized therapy with the therapist is important for the first 2-4 months after surgery depending on the type of procedure. During that time you will attend therapy 1-3 times per week. * You will also need to do daily exercises for range of motion and strength as instructed. * Patients who have a Capsular Shift Procedure will need to abide by temporary range of motion limitations. * Patients having Rotator Cuff Surgery are not allowed to actively lift their arms until 4-6 weeks after surgery. * Please check with your doctor regarding appropriate motion restrictions. FOLLOW UP VISIT: * If not already scheduled, please call the office at to schedule a follow-up appointment for 10 days after surgery and monthly thereafter. Diet Recommendations Recommended Home Diet: resume previous diet Procedures Procedures Performed: see op note Pending Studies Studies pending at discharge: no Medical Emergencies . Who to Call and When: Medical Emergencies: If at any time you feel your situation is an emergency, please call 911 immediately. . Non-Emergent Contact Non-Emergency issues call your: Specialist Call Non-Emergent contact if: wound has increased drainage, wound has increased redness, wound has increased pain . . "Provider Documentation" section prepared by Gurpreet Tran. .
--- NOTE | 2017-05-23 11:15 | [facility] Post Operative Brief Note ---
Immediate Operative Summary Operative Date May 23, 2017. Pre-Operative Diagnosis Left Shoulder Rotator Cuff Tear with Biceps Tendonopathy Post-Operative Diagnosis Same Procedure(s) Performed Left Shoulder Arthroscopy, Subacromial Decompression, Biceps Tenotomy, Exam Under Anesthesia Surgeon Dr. Tran Dye Beck Reel Operator Surgeon(s) Dr. Andrew Barlow, Fellow; Diony Gudino PA-C Estimated Blood Loss Trace Findings Consistent with Post-Op Diagnosis Fluids (cc crystalloids) 1000cc Specimens None Drains None Anesthesia Type General Regional Complication(s) none Disposition Accompanied Pt To Recovery: no Disposition: Recovery Room / PACU
--- NOTE | 2017-05-23 11:39 | OPERATIVE REPORT ---
DATE OF OPERATION: 05/23/2017 SURGEON: Dr. Mcclure. SURGEON: Yen. SECOND SENIOR BEHAVIORAL SCIENTIST: FRANCES Gudino PREOPERATIVE DIAGNOSES: Recurrent shoulder pain status post rotator cuff repair, excision distal clavicle, MRI scan positive for biceps tendinopathy, labral disease, articular disease and possible rotator cuff tendinopathy. POSTOPERATIVE DIAGNOS@S: Same. OPERATION PERFORMED: 1. Exam under anesthesia. 2. Diagnostic arthroscopy. 3. Arthroscopic debridement of glenohumeral joint. 4. Arthroscopic biceps tenotomy. 5. Arthroscopic revision subacromial decompression and debridement of retained sutures. PERIOPERATIVE SITUATION: Medically cleared male with intractable shoulder pain. Physical exam, x-ray and MRI scan consistent with a recurrent tendinopathy of his biceps rotator cuff disease. There was a large excision of his distal clavicle, but there is no documented horizontal instability. Options were discussed with him in detail. He elected for the biceps tenotomy, based on the potential recovery time being decreased. He was advised concerning the bulge and cramping. DESCRIPTION OF PROCEDURE: The patient was properly identified, site verified, consent verified, 2 grams of Ancef confirmed as being given. The shoulder was examined revealing no instability. The AC joint appeared stable. It was then carefully placed in a beach chair position. Left upper extremity prepped and draped in usual routine fashion. A posterior portal made 2 cm medial and inferior to posterolateral tip of the acromion. The joint was entered. Degenerative disease of the glenohumeral joint was noted. The biceps, when it was reflected into the joint had an exuberant synovitis going down along this tract, it was elected based on the patient's decision to tenotomize it that was performed and no issues occurred. The intra-articular portion of the cuff was then identified, some retained sutures were there and these were debrided. There was no full thickness cuff tear appreciated. The subacromial space was then entered. The acromion hook was then flattened, the rotator cuff bursa debrided and then the sutures on the superficial side noted they were debrided, but there was no full thickness tear noted. The arm was rotated in multiple positions internally, externally, forwardly flexed, abducted, no full thickness tear identified. As a result, the procedure was then terminated. All instruments and fluid removed. The portals closed with 3-0 nylon, dressed with Xeroform, 4 x 4 gauze, ABD pads and Ioban dressing. There was 3 totals portal. The anterior portal made just off the edge of the old AC joint. The anterolateral portal which was made next to his previous portal and the posterior portal. ESTIMATED BLOOD LOSS: Trace. CRYSTALLOID: 1000 mL. No DVT prophylaxis. No pathology pending. I attest to the content of the Intraoperative Record and any orders documented therein. Any exception s are noted below.
[2017-05-23 12:12] VITALS: TEMP 36.2
--- NOTE | 2017-05-23 12:32 | Anesthesia Progress Nt - [facility] ---
Anesthesia Post Op Note Date & Time May 23, 2017 at 12:32 Vital Signs Pain Intensity: 0 Vital Signs Past 12 Hours Date Time Temp Pulse Resp B/P (MAP) Pulse Ox O2 Delivery O2 Flow Rate FiO2 05/23/17 12:12 36.2 72 18 140/88 (105) 96 Room Air 05/23/17 12:08 36.2 74 16 143/90 98 Room Air 05/23/17 12:03 67 8 98 05/23/17 12:03 68 8 05/23/17 12:01 144/88 05/23/17 11:58 84 17 05/23/17 11:58 84 17 94 05/23/17 11:56 142/100 05/23/17 11:53 83 20 05/23/17 11:53 83 20 99 05/23/17 11:51 135/90 05/23/17 11:48 81 18 05/23/17 11:48 81 18 99 05/23/17 11:46 143/83 05/23/17 11:43 90 14 99 05/23/17 11:43 90 14 05/23/17 11:42 82 15 100 05/23/17 11:42 81 15 05/23/17 11:41 140/89 05/23/17 11:38 135/86 05/23/17 11:37 86 20 99 05/23/17 11:37 87 20 05/23/17 11:36 142/106 05/23/17 11:34 128/89 05/23/17 11:34 36.0 90 15 128/89 97 Mask 6 05/23/17 11:33 162/105 05/23/17 10:12 82 27 100 05/23/17 10:12 82 05/23/17 10:11 155/92 05/23/17 10:08 78 05/23/17 10:08 77 13 99 05/23/17 10:06 138/97 05/23/17 10:03 79 9 99 05/23/17 10:03 79 05/23/17 10:01 148/97 05/23/17 09:58 75 8 99 05/23/17 09:58 75 05/23/17 09:55 151/100 05/23/17 09:53 77 05/23/17 09:53 78 21 99 4/3/18 09:51 149/99 05/23/17 09:48 71 19 152/110 100 05/23/17 09:48 69 05/23/17 09:43 64 0 05/23/17 09:38 66 0 05/23/17 09:33 69 0 05/23/17 09:28 66 0 05/23/17 09:23 64 0 05/23/17 09:18 65 0 05/23/17 09:13 64 0 05/23/17 09:08 66 0 05/23/17 09:03 66 0 05/23/17 08:58 70 0 05/23/17 08:53 66 0 05/23/17 08:48 64 0 05/23/17 08:43 69 0 05/23/17 08:38 67 0 05/23/17 08:33 66 0 05/23/17 08:28 67 0 05/23/17 08:23 64 0 05/23/17 08:18 66 0 05/23/17 08:13 66 0 05/23/17 08:08 65 0 05/23/17 08:03 67 0 05/23/17 07:58 66 0 05/23/17 07:27 36.6 63 20 135/77 (96) 96 Room Air Notes Mental Status: alert / awake / arousable, participated in evaluation Pt Amnestic to Procedure: Yes Nausea / Vomiting: adequately controlled Pain: adequately controlled Airway Patency, RR, SpO2: stable & adequate BP & HR: stable & adequate Hydration State: stable & adequate Anesthetic Complications: no major complications apparent
[2017-05-23 12:54] VITALS: BP 137/91; PULSE 66; O2SAT 96
--- NOTE | 2017-05-25 10:15 | [facility] Operative Report ---
Operative Report Operative Date May 23, 2017. Pre-Operative Diagnosis Left Shoulder Rotator Cuff Tear with Biceps Tendonopathy Post-Operative Diagnosis Left shoulder same Procedure(s) Performed Left Shoulder Arthroscopy, Subacromial Decompression, Biceps Tenotomy, Exam Under Anesthesia Surgeon Dr. Tran Revenue Coordinator Surgeon(s) Dr. Andrew Barlow, Fellow; Diony Gudino PA-C Estimated Blood Loss Trace Findings Left shoulder impingement with biceps tendinopathy Fluids 1000cc Specimens None Drains None Anesthesia Type General Regional Complication(s) none Disposition no Recovery Room / PACU Indications This 56-year-old -[place] male presented to the office with complaints of recurrent left shoulder pain. He had tried conservative care measures without success. He also previously had left shoulder arthroscopy and rotator cuff repair elsewhere without improvement. He elected to proceed with surgical intervention after being educated about potential risks and outcomes. preoperative imaging was obtained. Description of Procedure Patient was administered a regional block and then taken to the operating room where he was given general anesthesia. He was prepped and draped in usual sterile fashion. Please see Dr. Tran's operative report for specifics of the procedure. I was present for the entire case from initial patient positioning through final wound closure. Assistance was provided in patient positioning, arthroscopy, and final wound closure. Patient was taken to the recovery room in satisfactory condition. I attest to the content of the Intraoperative Record and any orders documented therein. Any exceptions are noted below.
== END | disposition home or self-care (01) ==
LOC: X.SURG 06:55
PROVIDERS: ATTEND Physical Medicine & Rehabilitation Sports Medicine
DX: M75.22 Bicipital tendinitis, left shoulder (principal); M19.012 Primary osteoarthritis, left shoulder; M25.512 Pain in left shoulder; Z98.1 Arthrodesis status; G47.33 Obstructive sleep apnea (adult) (pediatric); E66.9 Obesity, unspecified

== ENCOUNTER → 2017-07-11 | Outpatient (CLI) | payer OTHER, BC ==
[~2017-07-11] MED LIST changes: -ATROPINE SULFATE 0.1 MG/ML 5ML SYR IV PRN; -BUPIVACAINE/EPINEPHRINE 0.5% MPF 1:200,000 30 ML VIAL ONE; -CEFAZOLIN 2000MG IV PUSH 15 ML IV SCH; -CEFTRIAXONE SOD 1 GM VIAL IV SCH; -DEXAMETHASONE SOD INJ 4 MG/ML VIAL ONE; -EpHEDrine SULFATE INJ 50 MG/ML AMP ONE; -EpINEphrine HCL INJ 1 MG/ML 1ML SYRINGE ONE; -FENTANYL CITRATE INJ 50 MCG/1 ML 2 ML VIAL IV PRN; -FENTANYL CITRATE INJ 50 MCG/1 ML 2 ML VIAL ONE; -GLYCOPYRROLATE INJ 0.2 MG/ML VIAL ONE; -KETOROLAC TROMETHAMINE 30 MG/ML VIAL IV. PRN; -LABETALOL HCL IV 5 MG/ML 20ML IV PRN; -LACTATED RINGER'S 1000ML 1,000 ML IV SCH; -LIDOCAINE HCL 2% 2 ML VIAL (20MG/ML) ONE; -MIDAZOLAM HCL 1 MG/ML 2ML VIAL ONE; -NEOSTIGMINE METHYLSULFATE 5 MG/5 ML SYR ONE; -ONDANSETRON INJ 2 MG/ML 2 ML VIAL IV PRN; -ONDANSETRON INJ 2 MG/ML 2 ML VIAL ONE; -OXYCODONE/ACETAMINOPHEN 5-325 TAB PO PRN; -PROPOFOL IV EMULSION 10 MG/ML 20 ML VIAL IV ONE; -ROCURONIUM BROMIDE 10 MG/ML 5 ML VIAL IV ONE; -ROPIVACAINE 0.5% 5 MG/ML 30 ML VIAL ONE; -SODIUM CHLORIDE 0.9% 1000ML 1,000 ML IV SCH
== END | disposition home or self-care (01) ==
LOC: C.RDSM 15:20
PROVIDERS: ATTEND Physical Medicine & Rehabilitation Sports Medicine
DX: M75.122 Complete rotator cuff tear or rupture of left shoulder, not specified as traumatic (principal)